=== PATIENT | female | born 1940 | race Caucasian/White ===

== ENCOUNTER 2016-11-16 10:42 | Outpatient (CLI) | payer MEDICARE ==
[2016-11-16 12:57] LABS: Hemoglobin A1c 6.2 % (4.0-6.0)
== END 2016-11-16 10:43 | disposition home or self-care (01) ==
LOC: NAVSJIPCSP 10:42
PROVIDERS: ATTEND Internal Medicine
DX: E11.59 Type 2 diabetes mellitus with other circulatory complications (principal); I11.0 Hypertensive heart disease with heart failure
CPT/HCPCS: 36415; 80061; 83036

== ENCOUNTER 2017-02-01 13:40 | Outpatient (CLI) | payer MEDICARE ==
[2017-02-01 14:10] LABS: Bilirubin Negative (Negative); Blood, Urine Moderate (Negative); Clarity Clear (Clear); Glucose, Urine (Dipstick) Negative (Negative); Leukocyte Large (Negative); Nitrite Positive (Negative); Protein, Urine (Dipstick) 30 mg/dL (Neg-Trace)
[2017-02-01 14:16] LABS: Bacteria/HPF 2+ HPF (None Seen); Other Microscopic Description NO; Squamous Epithelial 0-3 HPF (0-3)
== END 2017-02-01 13:41 | disposition home or self-care (01) ==
LOC: NAV LAB 13:40
PROVIDERS: ATTEND Internal Medicine
DX: N30.00 Acute cystitis without hematuria (principal)
CPT/HCPCS: 81003; 81015; 87077; 87086

== ENCOUNTER 2017-06-28 12:48 | Outpatient (CLI) | payer MEDICARE ==
[2017-06-28 15:40] LABS: Hemoglobin A1c 6.1 % (4.0-6.0)
[2017-06-28 15:43] LABS: Cardiac Risk 3.4 (Less than 4.5)
== END 2017-06-28 12:49 | disposition home or self-care (01) ==
LOC: NAVSJIPCSP 12:48
PROVIDERS: ATTEND Internal Medicine
DX: I11.0 Hypertensive heart disease with heart failure (principal); I50.9 Heart failure, unspecified; E78.5 Hyperlipidemia, unspecified; E11.59 Type 2 diabetes mellitus with other circulatory complications
CPT/HCPCS: 36415; 80061; 83036

== ENCOUNTER 2018-10-30 15:21 | Outpatient (CLI) | payer MEDICARE ==
[2018-10-30 15:24] LABS: Anion Gap 14 mmol/L (10-20); BUN (Urea Nitrogen) 36 mg/dL (9.8-20.1); Calc. Creatinine Clearance 0 mL/min (70-130); Calcium 9.7 mg/dL (7.8-10.44); Carbon Dioxide 23 mmol/L (23-31); Chloride 107 mmol/L (98-107); Estimated GFR-MDRD 45; Glucose 115 mg/dL (83-110); Potassium 5.2 mmol/L (3.5-5.1); Sodium 139 mmol/L (136-145)
== END 2018-10-30 15:22 | disposition home or self-care (01) ==
LOC: NAV LABSP 15:21
PROVIDERS: ATTEND Internal Medicine
DX: E87.5 Hyperkalemia (principal); Z79.899 Other long term (current) drug therapy
CPT/HCPCS: 80048

== ENCOUNTER 2019-01-04 16:01 | Outpatient (CLI) | payer MEDICARE ==
--- NOTE | 2019-01-04 17:01 | ULT ---
FUltrasound Doppler duplex venous left upper extremity: 01/04/2019 HISTORY: Left arm edema in 78-year-old female TECHNIQUE: Grayscale, color-flow, and spectral analysis, of major veins of left upper extremity. Compression and resupplied through all veins except the subclavian. FINDINGS: The left internal jugular, cephalic, axillary, brachial, basilic, ulnar, and radial, veins, have bloo d flow with no thrombosis. IMPRESSION: Negative. No deep venous thrombosis of left upper extremity.
== END 2019-01-04 16:02 | disposition home or self-care (01) ==
LOC: NAV RAD 16:01
PROVIDERS: ATTEND Internal Medicine
DX: M79.89 Other specified soft tissue disorders (principal)

== ENCOUNTER 2019-01-18 15:44 | Outpatient (CLI) | payer MEDICARE | END 2019-01-18 15:45 | disposition home or self-care (01) | LOC: NAV CT 15:44 | PROVIDERS: ATTEND Internal Medicine | DX: Z01.812 Encounter for preprocedural laboratory examination (principal); I89.0 Lymphedema, not elsewhere classified; Z90.12 Acquired absence of left breast and nipple | CPT/HCPCS: 82565 ==

== ENCOUNTER 2019-02-08 10:03 | Outpatient (CLI) | payer MEDICARE ==
[~2019-02-08 10:03] MED LIST: Iopamidol 370 76% 100 ML VIAL ONE
--- NOTE | 2019-02-08 11:31 | CT ---
CONTRAST ENHANCED CT IMAGES CHEST: HISTORY: Left-sided mastectomy with edema. FINDINGS: Contrast-enhanced CT of the chest performed. Comparison is made to previous exam from 02/11/2016. Contrast-enhanced CT of the chest demonstrates left-sided mastectomy. There has been placement of a right subclavian intracardiac defibrillator. The patient was injected in the right upper extremity. 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 Areas of lung parenchymal scarring are seen in the superior segment of the left upper lobe. The savage ent has asymmetry between the right and left thyroid lobes, the left being much smaller than right. No definite evidence of lymphadenopathy seen. No definite evidence of osseous lesion seen. No definite evidence of abnormal lung parenchymal lesion seen. 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 POS: [facility]
== END 2019-02-08 10:04 | disposition home or self-care (01) ==
LOC: NAV CT 10:03
PROVIDERS: ATTEND Internal Medicine
DX: I89.0 Lymphedema, not elsewhere classified (principal); Z90.12 Acquired absence of left breast and nipple; Z98.890 Other specified postprocedural states; I82.B11 Acute embolism and thrombosis of right subclavian vein
CPT/HCPCS: 71260; Q9967

== ENCOUNTER 2022-02-18 13:39 | Outpatient (CLI) | payer MEDICARE ==
[2022-02-18 22:34] LABS: Hemoglobin A1c 6.3 % (4.0-6.0)
[2022-02-18 22:44] LABS: Anion Gap 18 mmol/L (10-20); Cardiac Risk 4.5 (Less than 4.5); Cholesterol 159 mg/dl (< 200 Desired); HDL Cholesterol 35 mg/dL (>60 Neg Risk); LDL Cholesterol, Calculated 102 mg/dL; Triglycerides 109 mg/dL (Less than 150)
[2022-02-19 02:55] LABS: Albumin 4.1 g/dL (3.4-4.8)
[2022-02-19 02:56] LABS: Calcium 8.9 mg/dL (7.8-10.44); Chloride 99 mmol/L (98-107); Sodium 141 mmol/L (136-145)
[2022-02-19 02:57] LABS: Glucose 65 mg/dL (83-110); Protein, Total 7.2 g/dL (5.8-8.1)
[2022-02-19 02:58] LABS: Carbon Dioxide 27 mmol/L (23-31)
[2022-02-19 02:59] LABS: Bilirubin, Total 0.3 mg/dL (0.2-1.2)
[2022-02-19 03:00] LABS: Alkaline Phosphatase 107 U/L (40-110); Calc. Creatinine Clearance 0 mL/min (70-130)
[2022-02-19 03:01] LABS: BUN (Urea Nitrogen) 25 mg/dL (9.8-20.1)
[2022-02-19 03:02] LABS: AST (SGOT) 32 U/L (5-34)
[2022-02-19 03:03] LABS: ALT (SGPT) 46 U/L (8-55)
[2022-02-19 19:45] LABS: #Basophils 0.1 thou/uL (0.0-0.2); #Eosinphils 0.4 thou/uL (0.0-0.7); #Lymphocytes 2.1 thou/uL (1.20-3.40); #Monocytes 0.8 thou/uL (0.11-0.59); #Neutrophils 4.1 thou/uL (1.40-6.50); %Basophils 1.1 % (0.0-1.0); %Eosinophils 4.9 % (0.0-10.0); %Lymphocytes 28.1 % (21.0-51.0); %Monocytes 10.4 % (0.0-10.0); %Neutrophils 55.5 % (42.0-75.0); Hemoglobin 11.1 g/dL (12.0-16.0); Mean Corpuscular HGB CONC 32.1 g/dL (32.0-36.0); Mean Corpuscular Hemoglobin 31.4 pg (27.0-31.0); Mean Corpuscular Volume 97.9 fL (78.0-98.0); Platelet Count 130 thou/uL (130-400); RBC Distribution Width 12.2 % (11.5-14.5); Red Blood Cell (RBC) Count 3.53 mill/uL (4.20-5.40); White Blood Cell (WBC) Count 7.4 thou/uL (4.8-10.8)
== END 2022-02-18 13:40 | disposition home or self-care (01) ==
LOC: NAV LAB 13:39
PROVIDERS: ATTEND Family Medicine
DX: E11.9 Type 2 diabetes mellitus without complications (principal); Z79.899 Other long term (current) drug therapy
CPT/HCPCS: 36415; 80053; 80061; 83036; 85025

== ENCOUNTER 2022-05-18 16:14 | Inpatient (IN) | payer MEDICARE ==
[2022-05-18] MEDS ORDERED: Acetaminophen 325 MG TAB PO PRN (18:57)
[2022-05-18] MEDS ORDERED: Ondansetron ODT 4 MG TAB PO PRN (18:57)
[2022-05-18] MEDS ORDERED: Dextrose 50% Abboject 50 ML SYRINGE SLOW IVP PRN (18:57)
[2022-05-18] MEDS ORDERED: Sacubitril 49 MG/Valsartan 51 MG TABLET PO SCH (21:00)
[2022-05-18] MEDS ORDERED: Ondansetron ODT 4 MG TAB SL PRN (21:00)
[2022-05-18] MEDS ORDERED: Carvedilol 3.125 MG TAB PO SCH (21:00)
[2022-05-18] MEDS: Benzonatate 100 MG CAP PO SCH (21:25)
[2022-05-18] MEDS: hydrOXYzine 25 MG TAB PO SCH (21:26)
[2022-05-18] MEDS: Pregabalin 75 MG CAP PO SCH (21:26)
[2022-05-18] MEDS: Famotidine 20 MG TAB PO SCH (21:26)
[2022-05-18] MEDS: Atorvastatin Calcium 40 MG TAB PO SCH (21:26)
[2022-05-18] MEDS: Mometasone/Formoterol 200/5 60 PUFF INH SCH (21:27)
[2022-05-18] MEDS: HumaLOG 300 UNITS/3 ML VIAL SC PRN (21:28)
[2022-05-18] MEDS: HYDROcodone/Acetaminophen 5/325 mg Tablet PO PRN (21:40)
[2022-05-18] MEDS: Sacubitril 49 MG/Valsartan 51 MG TABLET PO SCH (22:07)
[2022-05-19 06:19] LABS: ALT (SGPT) 14 U/L (8-55); AST (SGOT) 22 U/L (5-34); Albumin 3.4 g/dL (3.4-4.8); Alkaline Phosphatase 50 U/L (40-110); Anion Gap 15 mmol/L (10-20); BUN (Urea Nitrogen) 30 mg/dL (9.8-20.1); Bilirubin, Total 0.4 mg/dL (0.2-1.2); Calc. Creatinine Clearance 35 mL/min (70-130); Calcium 8.7 mg/dL (7.8-10.44); Carbon Dioxide 29 mmol/L (23-31); Chloride 103 mmol/L (98-107); Estimated GFR 53; Globulin 2.8 g/dL (2.4-3.5); Glucose 87 mg/dL (83-110); Potassium 3.8 mmol/L (3.5-5.1); Protein, Total 6.2 g/dL (5.8-8.1); Sodium 143 mmol/L (136-145)
[2022-05-19 06:22] LABS: #Basophils 0.1 thou/uL (0.0-0.2); #Eosinphils 0.4 thou/uL (0.0-0.7); #Lymphocytes 2.4 thou/uL (1.20-3.40); #Monocytes 0.9 thou/uL (0.11-0.59); #Neutrophils 4.2 thou/uL (1.40-6.50); %Basophils 1.4 % (0.0-1.0); %Eosinophils 4.9 % (0.0-10.0); %Neutrophils 52.7 % (42.0-75.0); Hemoglobin 10.1 g/dL (12.0-16.0); Mean Corpuscular HGB CONC 31.2 g/dL (32.0-36.0); Mean Corpuscular Hemoglobin 30.3 pg (27.0-31.0); Mean Corpuscular Volume 97.1 fL (78.0-98.0); Platelet Count 138 thou/uL (130-400); RBC Distribution Width 12.5 % (11.5-14.5); Red Blood Cell (RBC) Count 3.32 mill/uL (4.20-5.40)
[2022-05-19] MEDS: Pregabalin 75 MG CAP PO SCH ×2 (08:48→21:50)
[2022-05-19] MEDS: Bumetanide 1 MG TAB PO SCH (08:49)
[2022-05-19] MEDS: hydrOXYzine 25 MG TAB PO SCH ×2 (08:49→21:50)
[2022-05-19] MEDS: Montelukast Sodium 10 mg Tablet PO SCH (08:49)
[2022-05-19] MEDS: Sacubitril 49 MG/Valsartan 51 MG TABLET PO SCH ×2 (08:50→21:51)
[2022-05-19] MEDS: Enoxaparin Sodium 30 MG/0.3 ML SYRINGE SC SCH (08:50)
[2022-05-19] MEDS: Aspirin 81 mg Enteric Coated Tablet PO SCH (08:50)
[2022-05-19] MEDS: Benzonatate 100 MG CAP PO SCH ×3 (08:50→21:50)
[2022-05-19] MEDS: Citalopram 20 MG TAB PO SCH (08:50)
[2022-05-19] MEDS: Mometasone/Formoterol 200/5 60 PUFF INH SCH ×2 (08:52→21:56)
[2022-05-19] MEDS: Ipratropium Bromide 0.03% Nasal Inhaler 30 ml Bottle EA NARE SCH (09:00)
[2022-05-19] MEDS: HumaLOG 300 UNITS/3 ML VIAL SC PRN ×2 (11:38→21:53)
[2022-05-19] MEDS: Atorvastatin Calcium 40 MG TAB PO SCH (21:50)
[2022-05-19] MEDS: Famotidine 20 MG TAB PO SCH (21:51)
[2022-05-20] MEDS: Pregabalin 75 MG CAP PO SCH ×2 (08:17→21:12)
[2022-05-20] MEDS: Bumetanide 1 MG TAB PO SCH (08:17)
[2022-05-20] MEDS: Sacubitril 49 MG/Valsartan 51 MG TABLET PO SCH ×2 (08:18→21:12)
[2022-05-20] MEDS: Aspirin 81 mg Enteric Coated Tablet PO SCH (08:18)
[2022-05-20] MEDS: Benzonatate 100 MG CAP PO SCH ×3 (08:19→21:13)
[2022-05-20] MEDS: Citalopram 20 MG TAB PO SCH (08:19)
[2022-05-20] MEDS: Enoxaparin Sodium 30 MG/0.3 ML SYRINGE SC SCH (08:19)
[2022-05-20] MEDS: Montelukast Sodium 10 mg Tablet PO SCH (08:19)
[2022-05-20] MEDS: hydrOXYzine 25 MG TAB PO SCH ×2 (08:19→21:13)
[2022-05-20] MEDS: Mometasone/Formoterol 200/5 60 PUFF INH SCH ×2 (08:24→21:10)
[2022-05-20] MEDS: HYDROcodone/Acetaminophen 5/325 mg Tablet PO PRN (09:04)
[2022-05-20] MEDS: HumaLOG 300 UNITS/3 ML VIAL SC PRN ×2 (12:38→18:16)
[2022-05-20] MEDS: Ipratropium Bromide 0.03% Nasal Inhaler 30 ml Bottle EA NARE SCH (12:40)
[2022-05-20] MEDS: Famotidine 20 MG TAB PO SCH (21:12)
[2022-05-20] MEDS: Atorvastatin Calcium 40 MG TAB PO SCH (21:13)
[2022-05-21] MEDS: Enoxaparin Sodium 30 MG/0.3 ML SYRINGE SC SCH (08:32)
[2022-05-21] MEDS: Benzonatate 100 MG CAP PO SCH ×3 (08:33→21:30)
[2022-05-21] MEDS: Aspirin 81 mg Enteric Coated Tablet PO SCH (08:33)
[2022-05-21] MEDS: Bumetanide 1 MG TAB PO SCH (08:33)
[2022-05-21] MEDS: Montelukast Sodium 10 mg Tablet PO SCH (08:34)
[2022-05-21] MEDS: Pregabalin 75 MG CAP PO SCH ×2 (08:34→21:31)
[2022-05-21] MEDS: Empagliflozin 10 MG TAB PO SCH (08:34)
[2022-05-21] MEDS: Citalopram 20 MG TAB PO SCH (08:35)
[2022-05-21] MEDS: hydrOXYzine 25 MG TAB PO SCH ×2 (08:35→21:30)
[2022-05-21] MEDS: Sacubitril 49 MG/Valsartan 51 MG TABLET PO SCH ×2 (08:35→21:30)
[2022-05-21] MEDS: Ipratropium Bromide 0.03% Nasal Inhaler 30 ml Bottle EA NARE SCH (08:35)
[2022-05-21] MEDS: Mometasone/Formoterol 200/5 60 PUFF INH SCH ×2 (08:36→21:30)
[2022-05-21] MEDS: HumaLOG 300 UNITS/3 ML VIAL SC PRN (12:38)
[2022-05-21] MEDS: Atorvastatin Calcium 40 MG TAB PO SCH (21:30)
[2022-05-21] MEDS: Famotidine 20 MG TAB PO SCH (21:30)
[2022-05-22] MEDS: HumaLOG 300 UNITS/3 ML VIAL SC PRN ×3 (06:14→16:38)
[2022-05-22] MEDS: Aspirin 81 mg Enteric Coated Tablet PO SCH ×2 (10:07→10:08)
[2022-05-22] MEDS: Bumetanide 1 MG TAB PO SCH (10:07)
[2022-05-22] MEDS: Enoxaparin Sodium 30 MG/0.3 ML SYRINGE SC SCH (10:07)
[2022-05-22] MEDS: Sacubitril 49 MG/Valsartan 51 MG TABLET PO SCH ×2 (10:07→21:40)
[2022-05-22] MEDS: Montelukast Sodium 10 mg Tablet PO SCH (10:08)
[2022-05-22] MEDS: Citalopram 20 MG TAB PO SCH (10:08)
[2022-05-22] MEDS: hydrOXYzine 25 MG TAB PO SCH ×2 (10:08→21:40)
[2022-05-22] MEDS: Pregabalin 75 MG CAP PO SCH ×2 (10:08→21:40)
[2022-05-22] MEDS: Mometasone/Formoterol 200/5 60 PUFF INH SCH ×2 (10:08→21:39)
[2022-05-22] MEDS: Benzonatate 100 MG CAP PO SCH ×3 (10:08→21:40)
[2022-05-22] MEDS: Empagliflozin 10 MG TAB PO SCH (10:08)
[2022-05-22] MEDS: Ipratropium Bromide 0.03% Nasal Inhaler 30 ml Bottle EA NARE SCH (10:18)
[2022-05-22 17:51] LABS: SARS-CoV-2 NAA Rapid Test Not Detected (NotDetected)
[2022-05-22] MEDS: HYDROcodone/Acetaminophen 5/325 mg Tablet PO PRN (18:34)
[2022-05-22] MEDS: Famotidine 20 MG TAB PO SCH (21:40)
[2022-05-22] MEDS: Atorvastatin Calcium 40 MG TAB PO SCH (21:40)
[2022-05-23] MEDS: Enoxaparin Sodium 30 MG/0.3 ML SYRINGE SC SCH (08:16)
[2022-05-23] MEDS: Sacubitril 49 MG/Valsartan 51 MG TABLET PO SCH ×2 (08:17→21:29)
[2022-05-23] MEDS: Pregabalin 75 MG CAP PO SCH ×2 (08:18→21:18)
[2022-05-23] MEDS: Montelukast Sodium 10 mg Tablet PO SCH (08:19)
[2022-05-23] MEDS: Citalopram 20 MG TAB PO SCH (08:19)
[2022-05-23] MEDS: Empagliflozin 10 MG TAB PO SCH (08:19)
[2022-05-23] MEDS: Bumetanide 1 MG TAB PO SCH (08:19)
[2022-05-23] MEDS: Benzonatate 100 MG CAP PO SCH ×3 (08:20→21:19)
[2022-05-23] MEDS: hydrOXYzine 25 MG TAB PO SCH ×2 (08:20→21:19)
[2022-05-23] MEDS: Mometasone/Formoterol 200/5 60 PUFF INH SCH ×2 (08:23→21:19)
[2022-05-23] MEDS: Ipratropium Bromide 0.03% Nasal Inhaler 30 ml Bottle EA NARE SCH (08:34)
[2022-05-23] MEDS ORDERED: Bisacodyl 10 MG SUPP PR PRN (09:31)
[2022-05-23] MEDS ORDERED: Bisacodyl 5 MG TAB PO PRN (09:31)
[2022-05-23] MEDS ORDERED: Docusate 100 MG CAP PO SCH (09:45)
[2022-05-23] MEDS: HumaLOG 300 UNITS/3 ML VIAL SC PRN ×2 (12:51→21:21)
[2022-05-23 18:27] VITALS: BMI 22.9
[2022-05-23] MEDS: Famotidine 20 MG TAB PO SCH (21:17)
[2022-05-23] MEDS: Atorvastatin Calcium 40 MG TAB PO SCH (21:17)
[2022-05-23] MEDS: Docusate 100 MG CAP PO SCH (21:30)
[2022-05-24] MEDS: Mometasone/Formoterol 200/5 60 PUFF INH SCH ×2 (08:35→21:30)
[2022-05-24] MEDS: Enoxaparin Sodium 30 MG/0.3 ML SYRINGE SC SCH (08:35)
[2022-05-24] MEDS: Bumetanide 1 MG TAB PO SCH (08:36)
[2022-05-24] MEDS: Empagliflozin 10 MG TAB PO SCH (08:36)
[2022-05-24] MEDS: Montelukast Sodium 10 mg Tablet PO SCH (08:36)
[2022-05-24] MEDS: Benzonatate 100 MG CAP PO SCH ×3 (08:36→21:28)
[2022-05-24] MEDS: Pregabalin 75 MG CAP PO SCH ×2 (08:37→21:29)
[2022-05-24] MEDS: Aspirin 81 mg Enteric Coated Tablet PO SCH (08:37)
[2022-05-24] MEDS: Citalopram 20 MG TAB PO SCH (08:38)
[2022-05-24] MEDS: Sacubitril 49 MG/Valsartan 51 MG TABLET PO SCH ×2 (08:38→21:31)
[2022-05-24] MEDS: hydrOXYzine 25 MG TAB PO SCH ×2 (08:38→21:28)
[2022-05-24] MEDS: Ipratropium Bromide 0.03% Nasal Inhaler 30 ml Bottle EA NARE SCH (08:38)
[2022-05-24] MEDS: Docusate 100 MG CAP PO SCH ×2 (08:38→21:32)
[2022-05-24] MEDS: HumaLOG 300 UNITS/3 ML VIAL SC PRN (11:51)
[2022-05-24] MEDS: HYDROcodone/Acetaminophen 5/325 mg Tablet PO PRN (21:27)
[2022-05-24] MEDS: Atorvastatin Calcium 40 MG TAB PO SCH (21:29)
[2022-05-24] MEDS: Famotidine 20 MG TAB PO SCH (21:29)
[2022-05-25] MEDS: Bumetanide 1 MG TAB PO SCH (07:43)
[2022-05-25] MEDS: Benzonatate 100 MG CAP PO SCH ×3 (07:43→20:43)
[2022-05-25] MEDS: Citalopram 20 MG TAB PO SCH (07:43)
[2022-05-25] MEDS: hydrOXYzine 25 MG TAB PO SCH ×2 (07:44→20:43)
[2022-05-25] MEDS: Sacubitril 49 MG/Valsartan 51 MG TABLET PO SCH ×2 (07:45→20:44)
[2022-05-25] MEDS: Pregabalin 75 MG CAP PO SCH ×2 (07:45→20:44)
[2022-05-25] MEDS: Aspirin 81 mg Enteric Coated Tablet PO SCH (07:45)
[2022-05-25] MEDS: Montelukast Sodium 10 mg Tablet PO SCH (07:45)
[2022-05-25] MEDS: HYDROcodone/Acetaminophen 5/325 mg Tablet PO PRN (07:46)
[2022-05-25] MEDS: Empagliflozin 10 MG TAB PO SCH (07:46)
[2022-05-25] MEDS: Enoxaparin Sodium 30 MG/0.3 ML SYRINGE SC SCH (07:47)
[2022-05-25] MEDS: Docusate 100 MG CAP PO SCH ×2 (07:48→20:45)
[2022-05-25] MEDS: Mometasone/Formoterol 200/5 60 PUFF INH SCH ×2 (07:48→20:43)
[2022-05-25] MEDS: Ipratropium Bromide 0.03% Nasal Inhaler 30 ml Bottle EA NARE SCH (07:49)
[2022-05-25] MEDS: HumaLOG 300 UNITS/3 ML VIAL SC PRN ×2 (11:29→21:32)
[2022-05-25 20:16] VITALS: TEMP 98.1
[2022-05-25] MEDS: Atorvastatin Calcium 40 MG TAB PO SCH (20:45)
[2022-05-25] MEDS: Famotidine 20 MG TAB PO SCH (20:45)
[2022-05-26 07:48] VITALS: BP 127/74
[2022-05-26] MEDS: Benzonatate 100 MG CAP PO SCH (08:16)
[2022-05-26] MEDS: Aspirin 81 mg Enteric Coated Tablet PO SCH (08:17)
[2022-05-26] MEDS: hydrOXYzine 25 MG TAB PO SCH (08:17)
[2022-05-26] MEDS: Sacubitril 49 MG/Valsartan 51 MG TABLET PO SCH (08:17)
[2022-05-26] MEDS: Pregabalin 75 MG CAP PO SCH (08:17)
[2022-05-26] MEDS: Empagliflozin 10 MG TAB PO SCH (08:17)
[2022-05-26] MEDS: Bumetanide 1 MG TAB PO SCH (08:17)
[2022-05-26] MEDS: Docusate 100 MG CAP PO SCH (08:17)
[2022-05-26] MEDS: Citalopram 20 MG TAB PO SCH (08:17)
[2022-05-26] MEDS: Montelukast Sodium 10 mg Tablet PO SCH (08:18)
[2022-05-26] MEDS: Mometasone/Formoterol 200/5 60 PUFF INH SCH (08:19)
[2022-05-26] MEDS: Ipratropium Bromide 0.03% Nasal Inhaler 30 ml Bottle EA NARE SCH (08:20)
[2022-05-26] MEDS: Enoxaparin Sodium 30 MG/0.3 ML SYRINGE SC SCH (08:20)
== END 2022-05-26 11:45 | disposition home health service (06) | DRG 948 ==
LOC: NAV ACUTE 16:14
PROVIDERS: ADMIT Family Medicine; ATTEND Family Medicine
DX: R53.81 Other malaise (principal); I50.32 Chronic diastolic (congestive) heart failure; I13.0 Hypertensive heart and chronic kidney disease with heart failure and stage 1 through stage 4 chronic kidney disease, or unspecified chronic kidney disease; R53.1 Weakness; Z20.822 Contact with and (suspected) exposure to COVID-19; J44.9 Chronic obstructive pulmonary disease, unspecified; M48.061 Spinal stenosis, lumbar region without neurogenic claudication; E78.5 Hyperlipidemia, unspecified; I89.0 Lymphedema, not elsewhere classified; K59.00 Constipation, unspecified; N18.30 Chronic kidney disease, stage 3 unspecified; E11.22 Type 2 diabetes mellitus with diabetic chronic kidney disease; Z98.41 Cataract extraction status, right eye; Z98.42 Cataract extraction status, left eye; Z90.12 Acquired absence of left breast and nipple; Z85.3 Personal history of malignant neoplasm of breast; Z87.891 Personal history of nicotine dependence; Z88.0 Allergy status to penicillin; Z79.82 Long term (current) use of aspirin; Z79.899 Other long term (current) drug therapy
CPT/HCPCS: 36415; 36416; 80053; 85025; 94640; 94664; J1650; J1815; J7620; U0002

== ENCOUNTER 2023-12-07 17:04 | Emergency (ER) | payer MEDICARE ==
[2023-12-07] MEDS ORDERED: Aspirin Chewable 81 MG TAB ONE (17:56)
[2023-12-07 18:42] LABS: White Blood Cell (WBC) Count 8.6 10x3/uL (4.8-10.8)
[2023-12-07 18:43] LABS: #Basophils 0.1 thou/uL (0.0-0.2); #Eosinphils 0.5 thou/uL (0.0-0.7); #Lymphocytes 1.7 thou/uL (1.20-3.40); #Neutrophils 5.4 thou/uL (1.40-6.50); %Lymphocytes 19.8 % (21.0-51.0); %Neutrophils 62.1 % (42.0-75.0); Hematocrit 36.6 % (36.0-47.0); Manual Diff?? NO; Mean Corpuscular HGB CONC 32.9 g/dL (32.0-36.0); Mean Corpuscular Hemoglobin 31.8 pg (27.0-31.0); Mean Corpuscular Volume 96.6 fl (78.0-98.0); Mean Platelet Volume 16.8 fL (7.4-10.4); Platelet Count 90 10x3/uL (130-400); RBC Distribution Width 12.6 % (11.5-14.5); Red Blood Cell (RBC) Count 3.79 mill/uL (4.20-5.40)
[2023-12-07 18:53] LABS: ALT (SGPT) 18 U/L (8-55); AST (SGOT) 29 U/L (5-34); Albumin 4.2 g/dL (3.4-4.8); Alkaline Phosphatase 56 U/L (40-110); Anion Gap 18 mmol/L (10-20); BUN (Urea Nitrogen) 23 mg/dL (9.8-20.1); Bilirubin, Total 0.4 mg/dL (0.2-1.2); Calc. Creatinine Clearance 0 mL/min (70-130); Calcium 9.9 mg/dL (7.8-10.44); Carbon Dioxide 27 mmol/L (23-31); Chloride 102 mmol/L (98-107); Estimated GFR 43; Globulin 3.3 g/dL (2.4-3.5); Glucose 117 mg/dL (83-110); Potassium 3.6 mmol/L (3.5-5.1); Protein, Total 7.5 g/dL (5.8-8.1); Sodium 143 mmol/L (136-145); Troponin I Less than 0.010 ng/mL (< 0.028)
[2023-12-07 21:42] LABS: Troponin I Less than 0.010 ng/mL (< 0.028)
[2023-12-07] MEDS ORDERED: Mometasone/Formoterol 60 PUFF AER INH SCH (21:45)
[2023-12-07] MEDS ORDERED: Pregabalin 75 MG CAP PO SCH (21:45)
[2023-12-07] MEDS ORDERED: hydrOXYzine 25 MG TAB PO SCH (21:45)
[2023-12-07] MEDS ORDERED: Sacubitril 49 MG/Valsartan 51 MG TABLET PO SCH (21:45)
[2023-12-08 00:47] LABS: Troponin I Less than 0.010 ng/mL (< 0.028)
[2023-12-08 06:29] LABS: Troponin I Less than 0.010 ng/mL (< 0.028)
== END 2023-12-08 09:37 | disposition home or self-care (01) ==
LOC: NAV ERS 17:04
DX: R07.89 Other chest pain (principal); I10 Essential (primary) hypertension; E11.9 Type 2 diabetes mellitus without complications; J44.9 Chronic obstructive pulmonary disease, unspecified; E78.5 Hyperlipidemia, unspecified; Z87.891 Personal history of nicotine dependence; Z79.82 Long term (current) use of aspirin; Z79.899 Other long term (current) drug therapy
CPT/HCPCS: 36415; 71045; 80053; 83880; 84484; 85025; 93005